=== PATIENT | male | born 1965 ===

== ENCOUNTER 2021-06-18 23:06 | Inpatient (IN) | payer SELFPAY ==
[~2021-06-18 23:06] MED LIST: Iopamidol 370 76% 100 ML VIAL ONE
[2021-06-18] MEDS ORDERED: Furosemide 20 MG/2 ML VIAL ONE (23:14)
[2021-06-18] MEDS ORDERED: Nitroglycerin 0.4 MG TAB 1 EACH ONE (23:17)
[2021-06-18 23:23] LABS: #Eosinphils 0.3 thou/uL (0.0-0.7); #Lymphocytes 2.9 thou/uL (1.20-3.40); #Monocytes 1.2 thou/uL (0.11-0.59); #Neutrophils 10.4 thou/uL (1.40-6.50); %Basophils 0.2 % (0.0-1.0); %Eosinophils 1.8 % (0.0-10.0); %Lymphocytes 19.7 % (21.0-51.0); %Monocytes 8.1 % (0.0-10.0); %Neutrophils 70.2 % (42.0-75.0); Hemoglobin 15.6 g/dL (14.0-18.0); Mean Corpuscular Hemoglobin 30.7 pg (27.0-31.0); Platelet Count 202 thou/uL (130-400); RBC Distribution Width 12.6 % (11.5-14.5); White Blood Cell (WBC) Count 14.8 thou/uL (4.8-10.8)
[2021-06-18] MEDS ORDERED: Cefepime 2 GM VIAL ONE (23:25)
[2021-06-18] MEDS ORDERED: Nitroglycerin 50 MG/250 ML BOT 250 ML ONE (23:25)
[2021-06-18 23:30] LABS: Actual Bicarbonate (HCO3a) 17.4 mEq/L (22-28); Analyzer IN Cardio ER; Base Excess (BEa) -9.9 mEq/L (-2.0 to +3.0); CO2 Tension 43.1 mmHg (35.0-45.0); Calcium, Ionized (arterial) 1.11 mmol/L (1.12-1.30); Carboxyhemoglobin (COHb) 1.4 gm% (0.0-3.0); Hemoglobin (Hb) 16.1 g/dL (14.0-18.0); O2 Tension (PaO2), arterial 143.6 mmHg (80.0-100.0); Potassium - ABG Lab 4.49 mmol/L (3.70-5.30)
[2021-06-18] MEDS ORDERED: Succinylcholine 200 MG/10 ml SYRINGE FS ONE (23:34)
[2021-06-18 23:44] LABS: ALT (SGPT) 18 U/L (8-55); AST (SGOT) 28 U/L (5-34); Albumin 4.2 g/dL (3.5-5.0); Alkaline Phosphatase 111 U/L (40-110); Anion Gap 21 mmol/L (10-20); BUN (Urea Nitrogen) 16 mg/dL (8.4-25.7); Bilirubin, Total 0.5 mg/dL (0.2-1.2); Calc. Creatinine Clearance 0 mL/min (70-130); Calcium 9.2 mg/dL (7.8-10.44); Carbon Dioxide 20 mmol/L (22-29); Chloride 99 mmol/L (98-107); Glucose 270 mg/dL (70-105); Potassium 3.6 mmol/L (3.5-5.1); Protein, Total 8.2 g/dL (6.0-8.3); Sodium 136 mmol/L (136-145)
[2021-06-18] MEDS ORDERED: Propofol 1,000 MG/100 ML VIAL IV ONE (23:45)
[2021-06-19] MEDS ORDERED: Vancomycin 1 GM/200 ML BAG ONE
[2021-06-19] MEDS ORDERED: Acetaminophen 650 MG Suppository ONE (00:03)
[2021-06-19] MEDS ORDERED: Sterile Water 10 ML ONE (00:16)
[2021-06-19] MEDS ORDERED: Vecuronium 10 MG VIAL ONE (00:16)
[2021-06-19 00:25] LABS: SARS-CoV-2 NAA Rapid Test DETECTED (NotDetected)
[2021-06-19 00:32] LABS: Actual Bicarbonate (HCO3a) 16.8 mEq/L (22-28); Analyzer IN Cardio ER; Base Excess (BEa) -10.5 mEq/L (-2.0 to +3.0); CO2 Tension 41.7 mmHg (35.0-45.0); Calcium, Ionized (arterial) 1.09 mmol/L (1.12-1.30); Carboxyhemoglobin (COHb) 1.1 gm% (0.0-3.0); Hemoglobin (Hb) 15.5 g/dL (14.0-18.0); O2 Tension (PaO2), arterial 103.8 mmHg (80.0-100.0); Potassium - ABG Lab 3.74 mmol/L (3.70-5.30)
[2021-06-19] MEDS ORDERED: Nitroglycerin 50 MG/250 ML BOT 250 ML IVPB PRN (00:40)
[2021-06-19] MEDS ORDERED: Nitroglycerin 0.4 MG TAB 1 EACH ONE (00:43)
[2021-06-19 00:45] LABS: pH, Arterial 7.22 (7.35-7.45)
[2021-06-19] MEDS ORDERED: Ventilator Sedation Protocol 1 EACH FS SCH (00:45)
[2021-06-19 00:46] LABS: ALV-art Gradient 515.525 mmHg (0-20); Puncture Site LRA
[2021-06-19 00:47] LABS: pH, Arterial 7.22 (7.35-7.45)
[2021-06-19 00:48] LABS: ALV-art Gradient 557.075 mmHg (0-20); Puncture Site LRA
[2021-06-19] MEDS ORDERED: Sodium Chloride 0.9% 1,000 ML IV SCH (01:00)
[2021-06-19] MEDS ORDERED: Morphine 4 MG/ML VIAL SLOW IVP PRN (01:06)
[2021-06-19 01:15] LABS: Bacteria/HPF 1+ HPF (None Seen); Bilirubin Negative (Negative); Blood, Urine Trace (Negative); Clarity Clear (Clear); Glucose, Urine (Dipstick) 150 mg/dL (Negative); Ketone, Urine Negative (Negative); Leukocyte Negative Leu/uL (Negative); Nitrite Negative (Negative); Protein, Urine (Dipstick) 100 mg/dL (Neg-Trace); RBC/HPF 0-3 HPF (0-3); Squamous Epithelial 0-3 HPF (0-3); Urobilinogen Normal mg/dL (Less than 2); WBC/HPF 0-3 HPF (0-3); pH, Urine 6.5 (5.0-9.0)
[2021-06-19] MEDS ORDERED: Propofol BOLUS 1,000 MG/100 ML VIAL IV PRN (01:15)
[2021-06-19] MEDS ORDERED: Lorazepam 2 MG/ML VIAL SLOW IVP PRN (01:15)
[2021-06-19] MEDS ORDERED: DISCONTINUE PREVIOUS NARCOTIC PAIN MEDICATIONS AND BENZODIAZEPINES FS SCH (01:15)
[2021-06-19] MEDS ORDERED: Fentanyl BOLUS 250 ML IVPB PRN (01:15)
[2021-06-19] MEDS ORDERED: Labetalol HCl 100 MG/20 ML VIAL ONE (01:33)
[2021-06-19 01:38] LABS: Hemoglobin A1c 5.4 % (4.0-6.0)
[2021-06-19 02:02] LABS: Troponin I 0.229 ng/mL (< 0.028)
[2021-06-19 02:47] LABS: Cardiac Risk 4.1 (Less than 4.5)
[2021-06-19] MEDS ORDERED: Enoxaparin Sodium 40 MG/0.4 ML SYRINGE SC SCH ×2 (03:00→09:00)
[2021-06-19 03:26] LABS: Actual Bicarbonate (HCO3a) 21.5 mEq/L (22-28); CO2 Tension 40.9 mmHg (35.0-45.0); Calcium, Ionized (arterial) 1.06 mmol/L (1.12-1.30); Hemoglobin (Hb) 14.6 g/dL (14.0-18.0); O2 Tension (PaO2), arterial 179.8 mmHg (80.0-100.0); pH, Arterial 7.34 (7.35-7.45)
[2021-06-19 03:28] LABS: ALV-art Gradient 482.075 mmHg (0-20); Puncture Site RRA
[2021-06-19 04:16] LABS: Legionella Urinary Ag Negative (Negative); Strep pneumo Urine Ag NEGATIVE (NEGATIVE)
[2021-06-19] MEDS: Propofol 1,000 MG/100 ML VIAL IV PRN ×3 (04:49→21:22)
[2021-06-19] MEDS: Fentanyl CADD 100 ML IV SCH (04:49)
[2021-06-19] MEDS ORDERED: Vancomycin HCl 500 MG in Sodium Chloride 0.9% 100 ML IVPB SCH (05:00)
[2021-06-19 06:33] LABS: Acetaminophen Less than 6.0 mcg/mL (10.0-30.0); Alcohol Less than 10 mg/dL (Less than 10); Salicylate Less than 8.0 mg/dL (15.0-30.0)
[2021-06-19 06:42] LABS: Troponin I 0.868 ng/mL (< 0.028)
[2021-06-19] MEDS ORDERED: Enoxaparin Sodium 30 MG/0.3 ML SYRINGE SC SCH (07:15)
[2021-06-19 07:36] LABS: Amphetamine Not Detected (NotDetected); Barbiturates Screen Not Detected (NotDetected); Benzodiazepine Screen Not Detected (NotDetected); Cocaine Metabolite Screen Not Detected (NotDetected); Methadone Not Detected (NotDetected); Methamphetamine Not Detected (NotDetected); Opiate Screen Not Detected (NotDetected); Oxycodone Screen Not Detected (NotDetected); Phencyclidine (PCP) Not Detected (NotDetected); THC/Cannabinoid Screen Not Detected (NotDetected); Tricyclic Screen Not Detected (NotDetected)
[2021-06-19] MEDS: Dexamethasone 4 mg/ml Vial SLOW IVP SCH (07:54)
[2021-06-19] MEDS: Furosemide 20 MG/2 ML VIAL SLOW IVP SCH (07:54)
[2021-06-19 08:44] LABS: Actual Bicarbonate (HCO3a) 22.5 mEq/L (22-28); Base Excess (BEa) -1.6 mEq/L (-2.0 to +3.0); CO2 Tension 36.6 mmHg (35.0-45.0); Calcium, Ionized (arterial) 1.07 mmol/L (1.12-1.30); Carboxyhemoglobin (COHb) 0.6 gm% (0.0-3.0); Hemoglobin (Hb) 14.7 g/dL (14.0-18.0); O2 Tension (PaO2), arterial 97.9 mmHg (80.0-100.0); Potassium - ABG Lab 3.55 mmol/L (3.70-5.30); pH, Arterial 7.41 (7.35-7.45)
[2021-06-19 08:46] LABS: Puncture Site RRA
[2021-06-19] MEDS ORDERED: Dexamethasone 10 MG in Sodium Chloride 0.9% 50 ML IVPB SCH (09:00)
[2021-06-19] MEDS ORDERED: FLU VACC QS2021-22(6MOS UP)/PF 60 MCG/0.5 ML SYRINGE IM ONE (09:00)
[2021-06-19] MEDS ORDERED: Vancomycin 1 GM in Premix Bag 1 BAG IVPB SCH (09:00)
[2021-06-19] MEDS ORDERED: Heparin 10,000 UNITS/ 10 ML VIAL ONE (09:09)
[2021-06-19] MEDS ORDERED: Sodium Chloride 0.9% 200 ML IV PRN (10:30)
[2021-06-19] MEDS ORDERED: DOBUTamine 500 mg/250 ml 250 ML ONE (10:40)
[2021-06-19] MEDS ORDERED: Iopamidol 370 76% 100 ML VIAL ONE (10:58)
[2021-06-19] MEDS ORDERED: hydrALAZINE 20 MG/ML VIAL SLOW IVP SCH (11:25)
[2021-06-19] MEDS ORDERED: Aspirin Chewable 81 MG TAB PER TUBE SCH (11:30)
[2021-06-19] MEDS ORDERED: DOBUTamine 500 mg/250 ml 250 ML IVPB SCH (11:30)
[2021-06-19 13:56] LABS: INR-International Normal Ratio 1.2; PTT 47.8 sec (22.9-36.1); Prothrombin Time 15.1 sec (12.0-14.7)
[2021-06-19] MEDS: Sodium Chloride 0.9% 1,000 ML IV SCH ×2 (14:24→18:00)
[2021-06-19] MEDS: BARICITINIB 1 MG TAB PO SCH (16:02)
[2021-06-19 17:37] LABS: Anion Gap 13 mmol/L (10-20); BUN (Urea Nitrogen) 21 mg/dL (8.4-25.7); Calc. Creatinine Clearance 57 mL/min (70-130); Calcium 8.4 mg/dL (7.8-10.44); Carbon Dioxide 22 mmol/L (22-29); Chloride 109 mmol/L (98-107); Glucose 149 mg/dL (70-105); Potassium 3.5 mmol/L (3.5-5.1); Sodium 140 mmol/L (136-145)
[2021-06-19 17:44] LABS: Critical Call Chem Troponin I RESULT DECREASING; Troponin I 0.557 ng/mL (< 0.028)
[2021-06-19] MEDS ORDERED: Potassium Chloride 20 MEQ TAB PO SCH (18:00)
[2021-06-19] MEDS ORDERED: Heparin 5,000 UNITS/ML VIAL SC SCH ×2 (21:00)
[2021-06-19] MEDS ORDERED: Enoxaparin Sodium 80 MG/0.8 ML SYRINGE SC SCH (21:00)
[2021-06-19] MEDS: Vancomycin 1 GM in Premix Bag 1 BAG IVPB SCH (21:05)
[2021-06-19] MEDS: Cefepime 2 GM in Sodium Chloride 0.9% 100 ML IVPB SCH (21:05)
[2021-06-20] MEDS: Sodium Chloride 0.9% 1,000 ML IV SCH (04:35)
[2021-06-20] MEDS: Propofol 1,000 MG/100 ML VIAL IV PRN (05:55)
[2021-06-20] MEDS: Fentanyl CADD 100 ML IV SCH (06:51)
[2021-06-20 08:09] LABS: Actual Bicarbonate (HCO3a) 22.6 mEq/L (22-28); Base Excess (BEa) -2.5 mEq/L (-2.0 to +3.0); CO2 Tension 40.4 mmHg (35.0-45.0); Calcium, Ionized (arterial) 1.08 mmol/L (1.12-1.30); Carboxyhemoglobin (COHb) 0.3 gm% (0.0-3.0); Hemoglobin (Hb) 13.2 g/dL (14.0-18.0); O2 Tension (PaO2), arterial 142.3 mmHg (80.0-100.0); Potassium - ABG Lab 3.82 mmol/L (3.70-5.30); pH, Arterial 7.37 (7.35-7.45)
[2021-06-20 08:12] LABS: Puncture Site Arterial Line
[2021-06-20] MEDS: Dexamethasone 4 mg/ml Vial SLOW IVP SCH (08:25)
[2021-06-20] MEDS: Aspirin Chewable 81 MG TAB PER TUBE SCH (08:25)
[2021-06-20] MEDS: Furosemide 20 MG/2 ML VIAL SLOW IVP SCH (08:25)
[2021-06-20 08:26] LABS: ALT (SGPT) 23 U/L (8-55); AST (SGOT) 35 U/L (5-34); Alkaline Phosphatase 68 U/L (40-110); Anion Gap 11 mmol/L (10-20); BUN (Urea Nitrogen) 24 mg/dL (8.4-25.7); Bilirubin, Total 0.4 mg/dL (0.2-1.2); Calc. Creatinine Clearance 57 mL/min (70-130); Calcium 8.3 mg/dL (7.8-10.44); Carbon Dioxide 23 mmol/L (22-29); Chloride 110 mmol/L (98-107); Globulin 2.8 g/dL (2.4-3.5); Glucose 116 mg/dL (70-105); Potassium 3.9 mmol/L (3.5-5.1); Protein, Total 5.8 g/dL (6.0-8.3); Sodium 140 mmol/L (136-145)
[2021-06-20] MEDS ORDERED: DOBUTamine 500 mg/250 ml 250 ML IVPB SCH ×2 (09:04→09:14)
[2021-06-20] MEDS ORDERED: Sodium Chloride 0.9% 1,000 ML IV SCH (09:09)
[2021-06-20] MEDS ORDERED: Nitroglycerin 2% Ointment 1 INCH/1 GM Packet TOP SCH (10:45)
[2021-06-20 11:40] LABS: Band 25 % (5-11); Hemoglobin 13.1 g/dL (14.0-18.0); Lymphocytes 2 % (21-51); MDiff Complete? YES; Mean Corpuscular HGB CONC 32.8 g/dL (32.0-36.0); Mean Corpuscular Volume 94.6 fL (78.0-98.0); Mean Platelet Volume 9.7 fL (7.4-10.4); Monocytes 1 % (0-10); Neutrophil 72 % (42-75); Platelet Count 162 thou/uL (130-400); RBC Distribution Width 12.8 % (11.5-14.5); Red Blood Cell (RBC) Count 4.21 mill/uL (4.70-6.10); White Blood Cell (WBC) Count 16.6 thou/uL (4.8-10.8)
[2021-06-20] MEDS ORDERED: Potassium Chloride 20 MEQ TAB PO SCH (12:00)
[2021-06-20] MEDS ORDERED: Lisinopril 2.5 MG TAB PO SCH (12:00)
[2021-06-20] MEDS: BARICITINIB 1 MG TAB PO SCH (15:14)
[2021-06-20] MEDS: hydrALAZINE 20 MG/ML VIAL SLOW IVP PRN (15:48)
[2021-06-20 16:09] LABS: SARS-CoV-2 IgG Spike Ab Interp Reactive (NonReactive); SARS-CoV-2 IgG Spike Conc/Indx 591.3 AU/mL (0.00-50.0)
[2021-06-20] MEDS ORDERED: Lisinopril 5 MG TAB PO SCH (19:15)
[2021-06-20] MEDS: Cefepime 2 GM in Sodium Chloride 0.9% 100 ML IVPB SCH (21:13)
[2021-06-20] MEDS: hydrALAZINE 25 MG TAB PO SCH (21:13)
[2021-06-20] MEDS: Nitroglycerin 2% Ointment 1 INCH/1 GM Packet TOP SCH (21:13)
[2021-06-20 21:51] LABS: Vancomycin, Trough 11.3 ug/mL
[2021-06-20] MEDS: Vancomycin 1 GM in Premix Bag 1 BAG IVPB SCH (22:35)
[2021-06-20] MEDS: Vancomycin 1.5 GRAM/300 ML BAG 1.5 GM in Premix Bag 1 BAG IVPB SCH (23:33)
[2021-06-21] MEDS: Albuterol 200 PUFF (6.7GM INHALER) INH SCH ×4 (00:49→19:15)
[2021-06-21] MEDS ORDERED: Albuterol 200 PUFF (6.7GM INHALER) INH SCH (02:30)
[2021-06-21 03:59] LABS: ALT (SGPT) 22 U/L (8-55); AST (SGOT) 34 U/L (5-34); Albumin 3.1 g/dL (3.5-5.0); Alkaline Phosphatase 59 U/L (40-110); Anion Gap 11 mmol/L (10-20); BUN (Urea Nitrogen) 28 mg/dL (8.4-25.7); Bilirubin, Total 0.5 mg/dL (0.2-1.2); Calc. Creatinine Clearance 70 mL/min (70-130); Calcium 8.3 mg/dL (7.8-10.44); Carbon Dioxide 22 mmol/L (22-29); Chloride 112 mmol/L (98-107); Globulin 2.9 g/dL (2.4-3.5); Glucose 89 mg/dL (70-105); Potassium 4.4 mmol/L (3.5-5.1); Sodium 141 mmol/L (136-145)
[2021-06-21] MEDS ORDERED: Lisinopril 5 MG TAB PO SCH ×2 (06:00→21:00)
[2021-06-21 06:27] LABS: Hemoglobin 12.5 g/dL (14.0-18.0); Mean Corpuscular HGB CONC 33.8 g/dL (32.0-36.0); Mean Corpuscular Hemoglobin 31.6 pg (27.0-31.0); Mean Corpuscular Volume 93.5 fL (78.0-98.0); Mean Platelet Volume 10.4 fL (7.4-10.4); Platelet Count 155 thou/uL (130-400); RBC Distribution Width 12.8 % (11.5-14.5); Red Blood Cell (RBC) Count 3.96 mill/uL (4.70-6.10); White Blood Cell (WBC) Count 15.1 thou/uL (4.8-10.8)
[2021-06-21 06:38] LABS: Band 29 % (5-11); Lymphocytes 4 % (21-51); MDiff Complete? YES; Monocytes 6 % (0-10); Neutrophil 61 % (42-75)
[2021-06-21] MEDS ORDERED: Sodium Chloride 0.9% 1,000 ML IV SCH (09:05)
[2021-06-21] MEDS: hydrALAZINE 25 MG TAB PO SCH ×3 (09:14→21:00)
[2021-06-21] MEDS: Aspirin Chewable 81 MG TAB PER TUBE SCH (09:14)
[2021-06-21] MEDS: Furosemide 20 MG/2 ML VIAL SLOW IVP SCH (09:14)
[2021-06-21] MEDS: Dexamethasone 4 mg/ml Vial SLOW IVP SCH (09:15)
[2021-06-21] MEDS: Nitroglycerin 2% Ointment 1 INCH/1 GM Packet TOP SCH ×2 (09:15→21:00)
[2021-06-21 12:39] LABS: Magnesium 2.1 mg/dL (1.6-2.6)
[2021-06-21] MEDS ORDERED: Lisinopril 10 MG TAB PO SCH (13:15)
[2021-06-21] MEDS: BARICITINIB 1 MG TAB PO SCH (14:57)
[2021-06-21] MEDS: hydrALAZINE 20 MG/ML VIAL SLOW IVP PRN ×2 (15:47→22:00)
[2021-06-21] MEDS: Cefepime 2 GM in Sodium Chloride 0.9% 100 ML IVPB SCH (20:59)
[2021-06-21] MEDS: Lisinopril 10 MG TAB PO SCH (21:00)
[2021-06-21] MEDS: Rosuvastatin 20 MG TAB PO SCH (21:00)
[2021-06-21] MEDS: Vancomycin 1.5 GRAM/300 ML BAG 1.5 GM in Premix Bag 1 BAG IVPB SCH (23:29)
[2021-06-21] MEDS ORDERED: hydrALAZINE 20 MG/ML VIAL SLOW IVP SCH (23:59)
[2021-06-22] MEDS: Albuterol 200 PUFF (6.7GM INHALER) INH SCH ×4 (01:18→18:04)
[2021-06-22 04:53] LABS: Hemoglobin 13.1 g/dL (14.0-18.0); Mean Corpuscular HGB CONC 33.1 g/dL (32.0-36.0); Mean Corpuscular Volume 93.5 fL (78.0-98.0); Mean Platelet Volume 10.5 fL (7.4-10.4); Platelet Count 173 thou/uL (130-400); RBC Distribution Width 12.7 % (11.5-14.5); Red Blood Cell (RBC) Count 4.24 mill/uL (4.70-6.10); White Blood Cell (WBC) Count 14.1 thou/uL (4.8-10.8)
[2021-06-22 05:04] LABS: Hypochromia SLIGHT = 6-15 cells (100X) (0-5/hpf); Lymphocytes 17 % (21-51); MDiff Complete? YES; Monocytes 5 % (0-10); Neutrophil 78 % (42-75); Platelet Morphology Comment Appears Adequate
[2021-06-22 05:14] LABS: Anion Gap 11 mmol/L (10-20); BUN (Urea Nitrogen) 32 mg/dL (8.4-25.7); CRP (Inflammatory) 0.95 mg/dL (= or < 0.5); Calc. Creatinine Clearance 55 mL/min (70-130); Calcium 8.8 mg/dL (7.8-10.44); Carbon Dioxide 23 mmol/L (22-29); Chloride 109 mmol/L (98-107); Glucose 93 mg/dL (70-105); Sodium 139 mmol/L (136-145)
[2021-06-22 05:17] LABS: ALT (SGPT) 39 U/L (8-55); AST (SGOT) 55 U/L (5-34); Albumin 3.3 g/dL (3.5-5.0); Alkaline Phosphatase 62 U/L (40-110); Bilirubin, Direct 0.3 mg/dL (0.1-0.3); Bilirubin, Total 0.5 mg/dL (0.2-1.2); Protein, Total 6.2 g/dL (6.0-8.3)
[2021-06-22] MEDS: hydrALAZINE 25 MG TAB PO SCH ×3 (08:20→21:11)
[2021-06-22] MEDS: Aspirin 325 mg Enteric Coated Tablet PO SCH (08:20)
[2021-06-22] MEDS: Dexamethasone 4 mg/ml Vial SLOW IVP SCH (08:21)
[2021-06-22] MEDS: Furosemide 20 MG/2 ML VIAL SLOW IVP SCH (08:21)
[2021-06-22] MEDS: Lisinopril 10 MG TAB PO SCH ×2 (08:21→21:12)
[2021-06-22] MEDS: Enoxaparin Sodium 40 MG/0.4 ML SYRINGE SC SCH (08:25)
[2021-06-22] MEDS: Nitroglycerin 2% Ointment 1 INCH/1 GM Packet TOP SCH ×2 (08:54→21:12)
[2021-06-22] MEDS ORDERED: Aspirin 325 mg Enteric Coated Tablet PO SCH (09:00)
[2021-06-22] MEDS ORDERED: Amlodipine 5 MG TAB PO SCH (09:30)
[2021-06-22 12:17] VITALS: BMI 24.0
[2021-06-22] MEDS ORDERED: Polyethylene Glycol 3350 17 GM Packet PO SCH ×2 (13:05→13:15)
[2021-06-22] MEDS: BARICITINIB 2 MG TAB PO SCH (14:41)
[2021-06-22] MEDS: Carvedilol 3.125 MG TAB PO SCH (18:04)
[2021-06-22] MEDS: hydrALAZINE 20 MG/ML VIAL SLOW IVP PRN (18:07)
[2021-06-22] MEDS: Rosuvastatin 20 MG TAB PO SCH (21:11)
[2021-06-22] MEDS: Amoxicillin/Potassium Clav 875 MG TAB PO SCH (21:11)
[2021-06-22 22:10] LABS: Vancomycin, Trough 15.2 ug/mL
[2021-06-23] MEDS: Albuterol 200 PUFF (6.7GM INHALER) INH SCH ×4 (01:45→20:02)
[2021-06-23 05:44] LABS: Hemoglobin 13.7 g/dL (14.0-18.0); Mean Corpuscular HGB CONC 33.5 g/dL (32.0-36.0); Mean Corpuscular Hemoglobin 31.1 pg (27.0-31.0); Mean Corpuscular Volume 92.8 fL (78.0-98.0); Mean Platelet Volume 9.9 fL (7.4-10.4); Platelet Count 175 thou/uL (130-400); RBC Distribution Width 12.5 % (11.5-14.5); Red Blood Cell (RBC) Count 4.41 mill/uL (4.70-6.10); White Blood Cell (WBC) Count 13.7 thou/uL (4.8-10.8)
[2021-06-23 05:59] LABS: Anion Gap 10 mmol/L (10-20); BUN (Urea Nitrogen) 34 mg/dL (8.4-25.7); CRP (Inflammatory) 1.37 mg/dL (= or < 0.5); Calc. Creatinine Clearance 61 mL/min (70-130); Calcium 9.1 mg/dL (7.8-10.44); Carbon Dioxide 26 mmol/L (22-29); Chloride 108 mmol/L (98-107); Glucose 82 mg/dL (70-105); Potassium 3.9 mmol/L (3.5-5.1); Sodium 140 mmol/L (136-145)
[2021-06-23 07:13] LABS: Band 8 % (5-11); Lymphocytes 7 % (21-51); MDiff Complete? YES; Monocytes 9 % (0-10); Neutrophil 76 % (42-75); Platelet Morphology Comment Appears Adequate; Polychromasia SLIGHT = 2-3 cells (100X) (0-2/hpf)
[2021-06-23] MEDS ORDERED: Amlodipine 5 MG TAB PO SCH (09:00)
[2021-06-23] MEDS: Carvedilol 3.125 MG TAB PO SCH (09:50)
[2021-06-23] MEDS: Dexamethasone 4 MG TAB PO SCH (09:52)
[2021-06-23] MEDS: Aspirin 325 mg Enteric Coated Tablet PO SCH (09:53)
[2021-06-23] MEDS: Enoxaparin Sodium 40 MG/0.4 ML SYRINGE SC SCH (09:53)
[2021-06-23] MEDS: Amoxicillin/Potassium Clav 875 MG TAB PO SCH ×2 (09:53→21:03)
[2021-06-23] MEDS: Furosemide 20 MG/2 ML VIAL SLOW IVP SCH (09:54)
[2021-06-23] MEDS: Nitroglycerin 2% Ointment 1 INCH/1 GM Packet TOP SCH (09:54)
[2021-06-23] MEDS: hydrALAZINE 25 MG TAB PO SCH ×3 (09:54→21:03)
[2021-06-23] MEDS: Polyethylene Glycol 3350 17 GM Packet PO SCH (09:54)
[2021-06-23] MEDS: Lisinopril 10 MG TAB PO SCH ×2 (09:54→21:04)
[2021-06-23] MEDS: BARICITINIB 2 MG TAB PO SCH (14:53)
[2021-06-23] MEDS: hydrALAZINE 20 MG/ML VIAL SLOW IVP PRN (14:54)
[2021-06-23] MEDS: Rosuvastatin 20 MG TAB PO SCH (21:03)
[2021-06-24] MEDS: Albuterol 200 PUFF (6.7GM INHALER) INH SCH ×2 (03:03→09:18)
[2021-06-24 06:17] LABS: Hemoglobin 14.4 g/dL (14.0-18.0); Lymphocytes 5 % (21-51); MDiff Complete? YES; Mean Corpuscular HGB CONC 33.6 g/dL (32.0-36.0); Mean Corpuscular Hemoglobin 31.2 pg (27.0-31.0); Mean Corpuscular Volume 92.9 fL (78.0-98.0); Mean Platelet Volume 9.8 fL (7.4-10.4); Monocytes 10 % (0-10); Neutrophil 85 % (42-75); Platelet Count 200 thou/uL (130-400); Platelet Morphology Comment Appears Adequate; RBC Distribution Width 12.4 % (11.5-14.5); Red Blood Cell (RBC) Count 4.63 mill/uL (4.70-6.10); White Blood Cell (WBC) Count 11.1 thou/uL (4.8-10.8)
[2021-06-24 07:51] LABS: Anion Gap 14 mmol/L (10-20); BUN (Urea Nitrogen) 35 mg/dL (8.4-25.7); Calc. Creatinine Clearance 59 mL/min (70-130); Calcium 9.1 mg/dL (7.8-10.44); Carbon Dioxide 24 mmol/L (22-29); Chloride 106 mmol/L (98-107); Glucose 73 mg/dL (70-105); Potassium 3.9 mmol/L (3.5-5.1); Sodium 140 mmol/L (136-145)
[2021-06-24] MEDS ORDERED: Clopidogrel Bisulfate 75 MG TAB PO SCH (09:00)
[2021-06-24] MEDS ORDERED: Amlodipine 10 MG TAB PO SCH (09:00)
[2021-06-24] MEDS ORDERED: Furosemide 20 MG TAB PO SCH (09:00)
[2021-06-24] MEDS: Dexamethasone 4 MG TAB PO SCH (09:16)
[2021-06-24] MEDS: Aspirin 325 mg Enteric Coated Tablet PO SCH (09:18)
[2021-06-24] MEDS: Amoxicillin/Potassium Clav 875 MG TAB PO SCH (09:18)
[2021-06-24] MEDS: hydrALAZINE 25 MG TAB PO SCH ×2 (09:18→17:00)
[2021-06-24] MEDS: Enoxaparin Sodium 40 MG/0.4 ML SYRINGE SC SCH (09:18)
[2021-06-24] MEDS: Lisinopril 10 MG TAB PO SCH (09:19)
[2021-06-24] MEDS: Polyethylene Glycol 3350 17 GM Packet PO SCH ×2 (09:19→09:43)
[2021-06-24] MEDS: BARICITINIB 2 MG TAB PO SCH (17:00)
[2021-06-24 17:08] VITALS: BP 187/97; TEMP 99.6
== END 2021-06-24 18:15 | disposition home or self-care (01) | DRG 871 ==
LOC: ERS 23:06 → CCU 06-19 00:08 → 2SW 06-21 23:30
PROVIDERS: ADMIT Student in an Organized Health Care Education/Training Program; ATTEND Student in an Organized Health Care Education/Training Program
PROC: 5A1945Z Respiratory Ventilation, 24-96 Consecutive Hours (ICD-10-PCS; principal; 2021-06-19)
PROC: XW0DXM6 Introduction of Baricitinib into Mouth and Pharynx, External Approach, New Technology Group 6 (ICD-10-PCS; 2021-06-19)
PROC: 0BH17EZ Insertion of Endotracheal Airway into Trachea, Via Natural or Artificial Opening (ICD-10-PCS; 2021-06-19)
PROC: 4A023N7 Measurement of Cardiac Sampling and Pressure, Left Heart, Percutaneous Approach (ICD-10-PCS; 2021-06-19)
PROC: B2151ZZ Fluoroscopy of Left Heart using Low Osmolar Contrast (ICD-10-PCS; 2021-06-19)
PROC: B2111ZZ Fluoroscopy of Multiple Coronary Arteries using Low Osmolar Contrast (ICD-10-PCS; 2021-06-19)
PROC: 8E0ZXY6 Isolation (ICD-10-PCS; 2021-06-19)
DX: A41.89 Other specified sepsis (principal); U07.1 COVID-19; J96.01 Acute respiratory failure with hypoxia; J12.82 Pneumonia due to coronavirus disease 2019; R57.0 Cardiogenic shock; I50.23 Acute on chronic systolic (congestive) heart failure; J15.9 Unspecified bacterial pneumonia; J81.0 Acute pulmonary edema; I16.1 Hypertensive emergency; N17.9 Acute kidney failure, unspecified; E87.2 Acidosis; I42.8 Other cardiomyopathies; J98.11 Atelectasis; R65.20 Severe sepsis without septic shock; I25.10 Atherosclerotic heart disease of native coronary artery without angina pectoris; R00.1 Bradycardia, unspecified; I11.0 Hypertensive heart disease with heart failure; Z78.1 Physical restraint status
CPT/HCPCS: 31500; 36415; 36600; 51702; 70450; 71045; 71275; 80048; 80053; 80061; 80076; 80202; 80306; 80307; 81003; 81015; 82805; 83036; 83605; 83735; 83880; 84145; 84443; 84484; 85007; 85025; 85027; 85610; 85730; 86140; 86769; 87040; 87086; 87449; 87899; 93005; 93010; 93458; 93798; 94002; 94003; 94660; 94760; 96365; 96366; 96367; 96368; 96375; J0360; J0692; J1100; J1250; J1644; J1650; J1940; J2270; J2704; J3010; J3370; J3490; J7050; J7620; J8540; Q9967; U0002